=== PATIENT | male | born 1965 | race Caucasian/White ===

== ENCOUNTER 2018-01-17 09:30 | Outpatient (CLI) | payer OTHER ==
--- NOTE | 2018-01-17 12:32 | PET ---
PET WITH CT SKULL TO MID THIGH: CLINICAL HISTORY: Lytic destructive lesion of right rib, indeterminate etiology (abnormality of x-ray). There is appropriate biodistribution of radiotracer activity. RADIOPHARMACEUTICAL: 9.13 mCi F18-FDG IV. FINDINGS: There are multiple hypermetabolic foci localizing to osseous structures of the posterior and right he mithorax. This includes a subtle area at the posterior T5 vertebral body with a SUV of 2.6. At the ri ght posterior T6 level, there is a hypermetabolic activity overlying the right lateral aspect of the T6 vertebral body with a SUV of 2.6. At the T7 posterior costovertebral junction, there is increased metabolic activity of approximately 3.7 SUV. There are multiple foci of hypermetabolic activity invol ving right ribs, with associated pathologic fractures, notably laterally and posterolaterally, includ ing the 6th rib with SUV of 2.5, 7th rib with SUV of 4.4, and 8th rib with SUV of 9.5. There is no hypermetabolic pulmonary mass. No hypermetabolic lesions of the solid abdominal organs. N ephrolithiasis is present bilaterally. There is enlargement of the prostate gland, 5.9 cm transverse. IMPRESSION: Multiple hypermetabolic lesions of osseous structures of the posterior and right thorax. This include s the spine, as well as right ribs, and within the multifocal hypermetabolic foci of the right ribs t here are associated pathologic fractures. There is no discernible hypermetabolic malignancy as the et iological source for metastatic skeletal lesions, and therefore, entities such as Paget disease shoul d be considered clinically with the utilization of laboratory markers such as bone specific alkaline phosphatase and other urinary markers which can be correlated. This may be performed via rheumatologi c medicine consultation. Should clinical workup for Paget disease prove negative, subsequent interrog ation for occult malignancy would then be necessary. Note is made that the prostate gland is enlarged. Therefore, correlation for an occult prostate malig latasha must also be performed utilizing clinical exam, as well as PSA values. The findings and recommendations were discussed with the patient's care provided, LUDMILA Kendrick, at the time of dictation at 1140 hours on 01/17/18. CODE CR. POS: [facility]
== END 2018-01-17 09:31 | disposition home or self-care (01) ==
LOC: PET 09:30
PROVIDERS: ATTEND Family Medicine
DX: Q76.6 Other congenital malformations of ribs (principal); M89.9 Disorder of bone, unspecified; N40.0 Benign prostatic hyperplasia without lower urinary tract symptoms
CPT/HCPCS: 78815; A9552

== ENCOUNTER 2018-04-01 07:27 | Day surgery (SDC) | payer OTHER ==
[2018-03-29 10:41] VITALS: BMI 28.7
[2018-04-01] MEDS ORDERED: Scopolamine 1.5 mg/72 hour Patch ONE (08:30)
[2018-04-01] MEDS ORDERED: Levofloxacin 500 mg/D5W 100 ml Premix Bag ONE (08:30)
[2018-04-01] MEDS ORDERED: Ondansetron ODT 4 MG TAB ONE (08:30)
[2018-04-01] MEDS ORDERED: Lidocaine 2% PF Inj 2 ML VIAL ONE (09:23)
[2018-04-01] MEDS ORDERED: Bupivacaine/Epinephrine 0.25% 30 ML VIAL ONE (09:23)
[2018-04-01] MEDS ORDERED: Propofol 500 MG/50 ML VIAL ONE (09:51)
--- NOTE | 2018-04-01 12:04 | PDOC.OP ---
Operative Note - Operative Note Operative Note: PROCEDURE: Right subclavian MediPort placement with fluoroscopic guidance SURGEON: Alistair Perdue M.D. DATE OF PROCEDURE: 04/01/2018 PREOPERATIVE DIAGNOSIS: Lymphoma POSTOPERATIVE DIAGNOSIS: Lymphoma HISTORY: Patient is diagnosed with lymphoma. Chemotherapy has been recommended and the oncologist has requested MediPort placement for this. OPERATIVE PROCEDURE IN DETAIL: After informed consent was obtained and appropriate preoperative antibiotics were administered, the patient was taken to the operating room and placed in supine position and monitored anesthesia care was administered. The patient was then placed in Trendelenburg position and the subclavian vein accessed easily on the first attempt with excellent flow of dark venous non-pulsatile blood. A wire threaded easily and was confirmed to be in the superior vena cava by fluoroscopy. Additional local anesthesia was infused to the skin and subcutaneous tissues lateral and inferior to the access site. The skin incision was extended from the wire laterally and a subcutaneous pocket developed inferiorly. A Mediport was obtained and confirmed to fit in the subcutaneous pocket. This was secured inferiorly to the pectoralis fascia with a Prolene suture, which was clamped, but not tied. The dilator and sheath were then placed over the wire and the dilator and wire removed leaving the sheath in place. The clamped MediPort tubing was tunneled through the sheath, which was then split and removed leaving the MediPort tubing in place. The tubing was adjusted until the tip was confirmed by fluoroscopy to be in the superior vena cava just above the atrium. The tubing was clamped at the skin level and cut and the tubing secured to the port, which was then placed in the subcutaneous pocket. The previously placed suture was secured and two additional sutures were placed to fix the port in place within the pocket. The port was aspirated with the Wren needle and had excellent flow of dark venous non-pulsatile blood and easily flushed without resistance. The subcutaneous tissues were closed with a running Monocryl suture, following which the skin was closed with a running subcuticular Monocryl suture. Dermabond dressings were placed and the hub was again accessed through the skin and confirmed to easily aspirate and easily flush. The course of the catheter was confirmed by fluoroscopy to be smooth with the tip appropriately located in the superior vena cava. The patient was taken her back to the day stay unit in good condition. Estimated blood loss was minimal. There were no complications. There were no specimens.
--- NOTE | 2018-04-01 13:04 | RAD ---
CHEST ONE VIEW: History: Status post Mediport placement. Evaluate for complication. Comparison: None. FINDINGS: Portable single view chest demonstrates a right sided Mediport catheter with the distal tip in the ex pected region of the superior vena cava. There is no pneumothorax. Normal cardiac silhouette. The pulmonary vessels and hilum are normal. Linear density in the left tila g base likely representing subsegmental atelectasis or scar. No consolidation or mass. No pneumothora x or acute osseous abnormalities. IMPRESSION: Right sided Mediport catheter as above. No pneumothorax. POS: [facility]
[2018-04-01] MEDS ORDERED: PROPOFOL 200 MG/20 ML VIAL ONE (14:21)
[2018-04-01] MEDS ORDERED: Lidocaine 1% PF 5 ML VIAL ONE (14:21)
== END 2018-04-01 11:30 | disposition home or self-care (01) ==
LOC: SDC 07:27
PROVIDERS: ATTEND Surgery
PROC: 02HV33Z Insertion of Infusion Device into Superior Vena Cava, Percutaneous Approach (ICD-10-PCS; principal; 2018-04-01)
DX: C85.90 Non-Hodgkin lymphoma, unspecified, unspecified site (principal); Z88.0 Allergy status to penicillin; Z79.899 Other long term (current) drug therapy
CPT/HCPCS: 71045; C1788; J1642; J1956; J2001; J2704; J3370; Q0162

== ENCOUNTER 2018-06-10 12:55 | Inpatient (IN) | payer OTHER ==
[2018-06-10] MEDS ORDERED: Famotidine/PF 20 mg/2ml Vial SLOW IVP SCH (13:15)
[2018-06-10] MEDS ORDERED: SODIUM CHLORIDE 0.9% IVP SCH (13:15)
[2018-06-10] MEDS ORDERED: ONDANSETRON IVP SCH (13:15)
[2018-06-10] MEDS ORDERED: SODIUM CHLORIDE 0.9% IVPB SCH ×7 (13:15→19:15)
[2018-06-10] MEDS ORDERED: VINCRISTINE SULFATE IVPB SCH ×3 (13:15→19:15)
[2018-06-10] MEDS ORDERED: RITUXIMAB IVPB SCH (13:15)
[2018-06-10] MEDS ORDERED: DIPHENHYDRAMINE IVPB SCH (13:15)
[2018-06-10] MEDS ORDERED: Dexamethasone 20 MG in Sodium Chloride 0.9% 50 ML IVPB SCH (13:15)
[2018-06-10] MEDS ORDERED: Acetaminophen 325 MG TAB PO SCH (13:15)
[2018-06-10] MEDS ORDERED: Pegfilgrastim Onpro 6 MG/0.6 ML SQ SCH (13:30)
[2018-06-10] MEDS ORDERED: CYCLOPHOSPHAMIDE IVPB SCH (13:30)
[2018-06-10] MEDS ORDERED: Sulfameth/Trimethoprim DS 800-160mg TAB PO SCH ×2 (13:30→21:00)
[2018-06-10 13:34] VITALS: BMI 28.8
[2018-06-10] MEDS ORDERED: DOXORUBICIN IVPB SCH ×2 (15:00→19:15)
[2018-06-10] MEDS: predniSONE 20 MG TAB PO SCH (17:46)
[2018-06-11] MEDS: Polyethylene Glycol 3350 17 GM Packet PO SCH (09:08)
[2018-06-11] MEDS: predniSONE 20 MG TAB PO SCH (09:24)
[2018-06-11] MEDS ORDERED: ONDANSETRON IVP SCH (12:00)
[2018-06-11] MEDS ORDERED: SODIUM CHLORIDE 0.9% IVP SCH (12:00)
[2018-06-11] MEDS ORDERED: VINCRISTINE SULFATE IVPB SCH (12:00)
[2018-06-11] MEDS ORDERED: SODIUM CHLORIDE 0.9% IVPB SCH (12:00)
[2018-06-11] MEDS ORDERED: Famotidine 20 MG TAB PO SCH (13:45)
--- NOTE | 2018-06-11 15:44 | HP ---
REASON FOR ADMISSION: Inpatient chemotherapy for diffuse large B-cell lymphoma. HISTORY OF PRESENT ILLNESS: The patient is a 52-year-old man with a recent diagnosis of diffuse large B-cell lymphoma, admitted for inpatient chemotherapy consisting of DA-EPOCH/R. He initially presented with right posterior periscapular back pain and subsequent imaging confirmed a destructive process at the right 8th rib measuring approximately 6 cm. A total body PET scan also revealed FDG-avid malignancy with the 8th rib as well as T5, T6, T7, and right ribs. A biopsy confirmed diffuse large B-cell lymphoma and molecular testing showed no evidence of double or triple hit lymphoma. He sought a second opinion at [facility] regarding diagnosis and management. The pathology was reviewed at the [facility] and at [facility] and all concurred with the initial assessment. As a consequence of extranodal disease which was multifocal, high Ki-67, and his young age, it was decided to treat him aggressively with dose adjusted EPOCH/Rituxan. He received his first 2 cycles of treatment at [facility] and a PET scan then showed a complete response. He had no significant side effects or myelosuppression during the first 2 cycles and doses were accelerated per standard protocol. He is admitted now for cycle 3. ALLERGIES: NONE, EXCEPT FOR A QUESTIONABLE ALLERGY TO PENICILLIN OF UNCLEAR TYPE. MEDICATIONS: None chronically. MEDICAL HISTORY: There is a history of colon polyps, nephrolithiasis, and diverticulosis. PAST SURGICAL HISTORY: The patient underwent colonoscopy with polypectomy in 2014 and 2017. He has had strabismus surgery in 1995. He underwent a varicocele repair and hydrocele repair in 1991 and 1963, respectively. A pyloromyotomy was performed in 1963. Finally, the patient underwent Mediport placement in March 2018. FAMILY HISTORY: The patient's father had colon and prostate cancer. His paternal grandfather also had prostate cancer and his paternal grandmother had lymphoma. SOCIAL HISTORY: He is and has no children. He lives with his spouse, who is quite involved in his care. He is a nonsmoker and social drinker. He used smokeless tobacco in the distant past, but discontinued use 10 years ago. He is a general administrator. REVIEW OF SYSTEMS: He denies significant cardiopulmonary, GI, , musculoskeletal, or neurological complaints. PHYSICAL EXAMINATION: VITAL SIGNS: Temperature 97.8, pulse 67, respirations 18, blood pressure 106/67 , and room air saturation 99%. GENERAL: The patient is well-developed and well-nourished man, in no acute distress. He is alert, oriented, and cooperative. There is obvious alopecia. HEENT: Extraocular movements are intact. Pupils are equal, round, and reactive to light. NECK: Supple. LUNGS: Clear. CARDIOVASCULAR: Regular, rate, and rhythm without murmur, rub, gallop, or click. ABDOMEN: No tenderness, organomegaly, masses, bruits, or ascites. EXTREMITIES: No clubbing, cyanosis, or edema. SKIN: Normal. LYMPH: No adenopathy. MUSCULOSKELETAL: No active arthritis. NEUROLOGICAL: No focal findings. Cranial nerves 2 through 12 are grossly intact. LABORATORY DATA: On June 07, prior to admission shows a white blood cell count of 4.4 and ANC 3.0. Hemoglobin is 12.5 and platelet count 301,000. A comprehensive chemistry panel is entirely normal except for a borderline globulin of 2.1. IMPRESSION: Multifocal extranodal diffuse large B-cell lymphoma involving bone. RECOMMENDATIONS: The patient will be admitted for a standard dose adjusted EPOCH/R. Doses in the regimen have been adjusted as per MD Omar's recommendations. He will receive Neulasta support as on the first two cycles. Job ID: [id number] [facility]
[2018-06-11] MEDS: diphenhydrAMINE 50 MG/ML VIAL IVP PRN (21:22)
[2018-06-11] MEDS: DOXORUBICIN IVPB SCH (23:53)
[2018-06-11] MEDS: SODIUM CHLORIDE 0.9% IVPB SCH (23:53)
[2018-06-11] MEDS: VINCRISTINE SULFATE IVPB SCH (23:53)
[2018-06-12] MEDS: Sulfameth/Trimethoprim DS 800-160mg TAB PO SCH (08:49)
[2018-06-12] MEDS: Famotidine 20 MG TAB PO SCH (08:50)
[2018-06-12] MEDS: Polyethylene Glycol 3350 17 GM Packet PO SCH (08:50)
[2018-06-12] MEDS: predniSONE 20 MG TAB PO SCH (08:58)
[2018-06-12] MEDS ORDERED: SODIUM CHLORIDE 0.9% IVP SCH (09:00)
[2018-06-12] MEDS ORDERED: ONDANSETRON IVP SCH (09:00)
[2018-06-13] MEDS: diphenhydrAMINE 50 MG/ML VIAL IVP PRN (00:36)
[2018-06-13 00:57] LABS: #Lymphocytes 0.4 thou/uL (1.20-3.40); #Monocytes 0.6 thou/uL (0.11-0.59); #Neutrophils 4.3 thou/uL (1.40-6.50); %Basophils 0.1 % (0.0-1.0); %Eosinophils 0.2 % (0.0-10.0); %Lymphocytes 8.2 % (21.0-51.0); %Monocytes 11.7 % (0.0-10.0); %Neutrophils 79.8 % (42.0-75.0); Hemoglobin 11.9 g/dL (14.0-18.0); Mean Corpuscular HGB CONC 33.7 g/dL (32.0-36.0); Mean Corpuscular Hemoglobin 30.1 pg (27.0-31.0); Mean Corpuscular Volume 89.2 fL (78.0-98.0); Mean Platelet Volume 7.2 fL (7.4-10.4); Platelet Count 208 thou/uL (130-400); RBC Distribution Width 14.4 % (11.5-14.5); Red Blood Cell (RBC) Count 3.96 mill/uL (4.70-6.10); White Blood Cell (WBC) Count 5.3 thou/uL (4.8-10.8)
[2018-06-13 01:24] LABS: ALT (SGPT) 38 U/L (8-55); AST (SGOT) 18 U/L (5-34); Alkaline Phosphatase 73 U/L (40-150); Anion Gap 12 mmol/L (10-20); BUN (Urea Nitrogen) 12 mg/dL (8.4-25.7); Bilirubin, Total 0.7 mg/dL (0.2-1.2); Calc. Creatinine Clearance 143 mL/min (70-130); Calcium 9.6 mg/dL (7.8-10.44); Carbon Dioxide 27 mmol/L (22-29); Chloride 105 mmol/L (98-107); Estimated GFR-MDRD Greater than 90; Globulin 2.3 g/dL (2.4-3.5); Glucose 114 mg/dL (70-105); Potassium 3.9 mmol/L (3.5-5.1); Protein, Total 6.3 g/dL (6.0-8.3); Sodium 140 mmol/L (136-145)
[2018-06-13] MEDS: SODIUM CHLORIDE 0.9% IVPB SCH (01:40)
[2018-06-13] MEDS: VINCRISTINE SULFATE IVPB SCH (01:40)
[2018-06-13] MEDS: DOXORUBICIN IVPB SCH (01:40)
[2018-06-13] MEDS: Polyethylene Glycol 3350 17 GM Packet PO SCH (09:03)
[2018-06-13] MEDS: predniSONE 20 MG TAB PO SCH (09:03)
[2018-06-13] MEDS: Famotidine 20 MG TAB PO SCH (09:04)
[2018-06-13] MEDS ORDERED: ONDANSETRON IVP SCH (12:00)
[2018-06-13] MEDS ORDERED: SODIUM CHLORIDE 0.9% IVP SCH (12:00)
[2018-06-13] MEDS ORDERED: DOXORUBICIN IVPB SCH (22:15)
[2018-06-13] MEDS ORDERED: VINCRISTINE SULFATE IVPB SCH (22:15)
[2018-06-13] MEDS ORDERED: SODIUM CHLORIDE 0.9% IVPB SCH (22:15)
[2018-06-14] MEDS: SODIUM CHLORIDE 0.9% IVP SCH (03:17)
[2018-06-14] MEDS: ONDANSETRON IVP SCH (03:17)
[2018-06-14] MEDS: DOXORUBICIN IVPB SCH (05:15)
[2018-06-14] MEDS: VINCRISTINE SULFATE IVPB SCH (05:15)
[2018-06-14] MEDS: SODIUM CHLORIDE 0.9% IVPB SCH (05:15)
[2018-06-14] MEDS ORDERED: SODIUM CHLORIDE 0.9% IVPB SCH (09:00)
[2018-06-14] MEDS ORDERED: CYCLOPHOSPHAMIDE IVPB SCH (09:00)
[2018-06-14] MEDS: Polyethylene Glycol 3350 17 GM Packet PO SCH (09:12)
[2018-06-14] MEDS: predniSONE 20 MG TAB PO SCH (09:12)
[2018-06-14] MEDS: Famotidine 20 MG TAB PO SCH (09:13)
[2018-06-14] MEDS: Sulfameth/Trimethoprim DS 800-160mg TAB PO SCH (09:13)
[2018-06-15] MEDS ORDERED: predniSONE 20 MG TAB PO SCH (06:00)
[2018-06-15] MEDS ORDERED: CYCLOPHOSPHAMIDE IVPB SCH (06:00)
[2018-06-15] MEDS ORDERED: SODIUM CHLORIDE 0.9% IVPB SCH (06:00)
[2018-06-15] MEDS: SODIUM CHLORIDE 0.9% IVP SCH (07:48)
[2018-06-15] MEDS: ONDANSETRON IVP SCH (07:48)
[2018-06-15 08:05] VITALS: BP 127/71; TEMP 97.8
[2018-06-15 08:34] LABS: #Monocytes 0.2 thou/uL (0.11-0.59); #Neutrophils 4.9 thou/uL (1.40-6.50); %Basophils 0.1 % (0.0-1.0); %Eosinophils 0.6 % (0.0-10.0); %Lymphocytes 16.3 % (21.0-51.0); %Monocytes 2.5 % (0.0-10.0); %Neutrophils 80.5 % (42.0-75.0); Hemoglobin 12.6 g/dL (14.0-18.0); Mean Corpuscular HGB CONC 34.3 g/dL (32.0-36.0); Mean Corpuscular Hemoglobin 30.2 pg (27.0-31.0); Mean Corpuscular Volume 88.1 fL (78.0-98.0); Mean Platelet Volume 7.5 fL (7.4-10.4); Platelet Count 215 thou/uL (130-400); RBC Distribution Width 13.9 % (11.5-14.5); Red Blood Cell (RBC) Count 4.18 mill/uL (4.70-6.10)
[2018-06-15] MEDS: Polyethylene Glycol 3350 17 GM Packet PO SCH (08:39)
[2018-06-15] MEDS: Famotidine 20 MG TAB PO SCH (08:41)
--- NOTE | 2018-06-17 09:54 | DIS ---
DATE OF ADMISSION: 06/10/2018 DATE OF DISCHARGE: 06/15/2018 DIAGNOSIS AT ADMISSION: Diffuse large B-cell lymphoma. DIAGNOSIS AT DISCHARGE: Diffuse large B-cell lymphoma, status post chemotherapy. HOSPITAL COURSE: The patient is a 52-year-old gentleman with a diagnosis of diffuse large B-cell lymphoma. He was admitted for inpatient chemotherapy consisting of DA-EPOCH/R. He tolerated the 5-day treatment with no issues. LABORATORY DATA: At the time of discharge, his white count was 6.0, hemoglobin was 12.6, hematocrit 36.8, and platelet count was 215,000. He did receive Neulasta Onpro at the time of discharge. DISCHARGE INSTRUCTIONS: He is being discharged home with instructions to follow up in our clinic on Sunday for repeat CBC. Job ID: [id number]
== END 2018-06-15 11:09 | disposition home or self-care (01) | DRG 847 ==
LOC: ONC 12:55
PROVIDERS: ADMIT Internal Medicine Hematology & Oncology; ATTEND Internal Medicine Hematology & Oncology
DX: Z51.11 Encounter for antineoplastic chemotherapy (principal); C83.30 Diffuse large B-cell lymphoma, unspecified site; Z86.010 Personal history of colon polyps; Z80.42 Family history of malignant neoplasm of prostate; Z80.0 Family history of malignant neoplasm of digestive organs; Z80.7 Family history of other malignant neoplasms of lymphoid, hematopoietic and related tissues
CPT/HCPCS: 36415; 80053; 82248; 83615; 84100; 84550; 85025; 96377; J1100; J1200; J2405; J2505; J7050; J7506; J9000; J9070; J9181; J9310; J9370

== ENCOUNTER 2018-07-08 14:03 | Inpatient (IN) | payer OTHER ==
[2018-07-08] MEDS ORDERED: Loperamide HCl 2 MG CAP PO PRN (14:27)
[2018-07-08] MEDS ORDERED: Ondansetron PF 4 MG/2 ML Vial SLOW IVP PRN (14:27)
[2018-07-08] MEDS ORDERED: predniSONE 20 MG TAB PO SCH (14:45)
[2018-07-08] MEDS ORDERED: DIPHENHYDRAMINE IVPB SCH (14:45)
[2018-07-08] MEDS ORDERED: Acetaminophen 325 MG TAB PO SCH (14:45)
[2018-07-08] MEDS ORDERED: ONDANSETRON HCL IVPB SCH (14:45)
[2018-07-08] MEDS ORDERED: Dexamethasone 20 MG in Sodium Chloride 0.9% 50 ML IVPB SCH (14:45)
[2018-07-08] MEDS ORDERED: Famotidine/PF 20 mg/2ml Vial SLOW IVP SCH ×2 (14:45→15:30)
[2018-07-08] MEDS ORDERED: SODIUM CHLORIDE 0.9% IVPB SCH ×3 (14:45)
[2018-07-08] MEDS ORDERED: RITUXIMAB IVPB SCH (14:45)
[2018-07-08] MEDS ORDERED: Sulfameth/Trimethoprim DS 800-160mg TAB PO SCH (15:00)
[2018-07-08 15:02] VITALS: BMI 29.1
[2018-07-08 16:31] LABS: Hemoglobin 12.5 g/dL (14.0-18.0); Mean Corpuscular HGB CONC 33.2 g/dL (32.0-36.0); Mean Corpuscular Hemoglobin 30.1 pg (27.0-31.0); Mean Corpuscular Volume 90.5 fL (78.0-98.0); Mean Platelet Volume 7.2 fL (7.4-10.4); Platelet Count 326 thou/uL (130-400); RBC Distribution Width 14.5 % (11.5-14.5); Red Blood Cell (RBC) Count 4.17 mill/uL (4.70-6.10); White Blood Cell (WBC) Count 5.6 thou/uL (4.8-10.8)
[2018-07-08 16:49] LABS: Band 3 % (5-11); Eosinophils 1 % (0-10); Lymphocytes 16 % (21-51); MDiff Complete? YES; Monocytes 11 % (0-10); Neutrophil 68 % (42-75); Ovalocytes SLIGHT = 2-5 cells (100X) (0-1/hpf); Platelet Morphology Comment Appears Adequate; Polychromasia SLIGHT = 2-3 cells (100X) (0-2/hpf); Reactive Lymphocytes 1 % (0-10); Tear Drops SLIGHT = 2-5 cells (100X) (0-1/hpf)
[2018-07-08 16:58] LABS: ALT (SGPT) 32 U/L (8-55); AST (SGOT) 27 U/L (5-34); Albumin 4.5 g/dL (3.5-5.0); Alkaline Phosphatase 97 U/L (40-150); Anion Gap 11 mmol/L (10-20); BUN (Urea Nitrogen) 21 mg/dL (8.4-25.7); Bilirubin, Total 0.4 mg/dL (0.2-1.2); Calc. Creatinine Clearance 106 mL/min (70-130); Carbon Dioxide 27 mmol/L (22-29); Chloride 104 mmol/L (98-107); Estimated GFR-MDRD 74; Globulin 2.5 g/dL (2.4-3.5); Glucose 95 mg/dL (70-105); LDH 258 U/L (125-220); Sodium 138 mmol/L (136-145); Uric Acid 6.1 mg/dL (3.5-7.2)
[2018-07-08] MEDS: Sulfameth/Trimethoprim DS 800-160mg TAB PO SCH (18:00)
[2018-07-08] MEDS: ONDANSETRON HCL IVPB SCH (22:24)
[2018-07-08] MEDS: SODIUM CHLORIDE 0.9% IVPB SCH (22:24)
[2018-07-09] MEDS: VINCRISTINE SULFATE IVPB SCH (00:59)
[2018-07-09] MEDS: SODIUM CHLORIDE 0.9% IVPB SCH (00:59)
[2018-07-09] MEDS: DOXORUBICIN IVPB SCH (00:59)
[2018-07-09] MEDS: Famotidine 20 MG TAB PO SCH (08:45)
[2018-07-09] MEDS: Polyethylene Glycol 3350 17 GM Packet PO SCH (08:45)
[2018-07-09] MEDS: predniSONE 20 MG TAB PO SCH (08:46)
[2018-07-10] MEDS: SODIUM CHLORIDE 0.9% IVPB SCH ×2 (02:46→04:42)
[2018-07-10] MEDS: ONDANSETRON HCL IVPB SCH (02:46)
[2018-07-10] MEDS: DOXORUBICIN IVPB SCH (04:42)
[2018-07-10] MEDS: VINCRISTINE SULFATE IVPB SCH (04:42)
[2018-07-10] MEDS: predniSONE 20 MG TAB PO SCH (08:42)
[2018-07-10] MEDS: Famotidine 20 MG TAB PO SCH (08:43)
[2018-07-10] MEDS: Sulfameth/Trimethoprim DS 800-160mg TAB PO SCH (08:43)
[2018-07-10] MEDS: Polyethylene Glycol 3350 17 GM Packet PO SCH (08:43)
--- NOTE | 2018-07-10 09:53 | HP ---
REASON FOR ADMISSION: Inpatient chemotherapy for diffuse large B-cell lymphoma. PRIMARY ONCOLOGIST: Dr. Mehul Aiken. HISTORY OF PRESENT ILLNESS: Mr. Sky is a pleasant 52-year-old gentleman with diffuse large B-cell lymphoma. He is being admitted today for inpatient chemotherapy consisting of DA-EPOCH-R. This will be cycle four. He received his first 2 cycles at [facility]. PET scan showed complete response. He had no significant side effects of myelosuppression. He had increased dose with cycle 3 and continues to do well today. He is being admitted for cycle four. He denies any concerns at this time. PAST MEDICAL HISTORY: 1. Colon polyps. 2. Nephrolithiasis. 3. Diverticulitis. PAST SURGICAL HISTORY: 1. Colonoscopy with polypectomy. 2. Strabismus surgery. 3. Varicocele repair. 4. Pyloromyotomy. 5. MediPort placement. ALLERGIES: ANESTHETICS AND PENICILLIN. HOME MEDICATIONS: Vitamin D and melatonin. FAMILY HISTORY: Father had colon and prostate cancer. Grandfather had prostate cancer. Paternal grandmother had lymphoma. SOCIAL HISTORY: with no children. Lives with his spouse. No alcohol, tobacco, or illicit drug use. REVIEW OF SYSTEMS: CONSTITUTIONAL: No fever, chills, or night sweats. EYES: No blurred or double vision. ENT: No pain, hoarseness, sore throat, or dysphagia. CV: No chest pain, palpitations, or syncope. RESPIRATORY: No shortness of breath, dyspnea on exertion, or orthopnea. GI: No nausea, vomiting, diarrhea, constipation, or abdominal pain. : No dysuria or hematuria. MUSCULOSKELETAL: No joint or back pain. SKIN: No rash or pruritus. HEMATOLOGIC: No bleeding, bruising, or clotting. NEUROLOGIC: No weakness, headache, numbness, tingling, or seizure activity. PSYCH: No anxiety or depression. PHYSICAL EXAMINATION: VITAL SIGNS: Temperature is 97.8, pulse is 77, respiratory rate 16, blood pressure is 122/75. He is 95% on room air. GENERAL: Well-developed, well-nourished male, in no acute distress. HEENT: Normocephalic and atraumatic. Pupils are equal and reactive to light. NECK: Supple. CV: Regular rate and rhythm. LUNGS: Clear. ABDOMEN: Soft and nontender. There is no organomegaly. Bowel sounds are positive. EXTREMITIES: No clubbing, cyanosis, or edema. SKIN: No rash. HEMATOLOGIC: No petechiae or purpura. NEUROLOGICAL: Nonfocal. LYMPH: There is no lymphadenopathy. PERTINENT LABORATORY DATA AND X-RAYS: WBCs are 5.6, hemoglobin 12.5, hematocrit 37.7, platelet count 326,000, 68% neutrophils, 3% bands, 16% lymphocytes. Sodium is 138, potassium 4.0, chloride 104, CO2 is 27, BUN is 11, creatinine 1.04. Uric acid is 6.1, calcium 10, total bilirubin is 0.4, AST is 27, ALT is 32, alkaline phosphatase is 97, LDH is 258. Serum total protein 7.0, albumin 4.5, and globulin 2.5. IMPRESSION: Multifocal extranodal diffuse large B-cell lymphoma with bone involvement. RECOMMENDATIONS: The patient is being admitted for cycle 4 of EPOCH-R. He will receive Neulasta support. We will continue p.r.n. stool softener and nausea medicine. He will be discharged at the completion of chemotherapy. Job ID: [id number]
[2018-07-11] MEDS: SODIUM CHLORIDE 0.9% IVPB SCH ×2 (06:52→08:49)
[2018-07-11] MEDS: ONDANSETRON HCL IVPB SCH (06:52)
[2018-07-11] MEDS: VINCRISTINE SULFATE IVPB SCH (08:49)
[2018-07-11] MEDS: DOXORUBICIN IVPB SCH (08:49)
[2018-07-11] MEDS: Famotidine 20 MG TAB PO SCH ×2 (09:24→21:00)
[2018-07-11] MEDS: predniSONE 20 MG TAB PO SCH (09:24)
[2018-07-11] MEDS: Polyethylene Glycol 3350 17 GM Packet PO SCH (09:24)
[2018-07-11] MEDS ORDERED: Mag-Al 1200 mg/1200 mg/30 ML UDCUP PO PRN (09:46)
[2018-07-11] MEDS ORDERED: Calcium Carbonate 500 MG ChewTAB PO PRN (09:46)
[2018-07-12] MEDS: Polyethylene Glycol 3350 17 GM Packet PO SCH (08:14)
[2018-07-12] MEDS: Famotidine 20 MG TAB PO SCH ×2 (08:14→21:00)
[2018-07-12] MEDS: Sulfameth/Trimethoprim DS 800-160mg TAB PO SCH (08:14)
[2018-07-12] MEDS: predniSONE 20 MG TAB PO SCH (08:14)
[2018-07-12] MEDS: ONDANSETRON HCL IVPB SCH (09:23)
[2018-07-12] MEDS: SODIUM CHLORIDE 0.9% IVPB SCH ×2 (09:23→12:18)
[2018-07-12] MEDS ORDERED: CYCLOPHOSPHAMIDE IVPB SCH (12:00)
[2018-07-12] MEDS ORDERED: SODIUM CHLORIDE 0.9% IVPB SCH (12:00)
[2018-07-12] MEDS ORDERED: Pegfilgrastim Onpro 6 MG/0.6 ML SQ SCH (12:00)
[2018-07-12] MEDS: DOXORUBICIN IVPB SCH (12:18)
[2018-07-12] MEDS: VINCRISTINE SULFATE IVPB SCH (12:18)
[2018-07-12 19:18] VITALS: TEMP 97.6
[2018-07-13] MEDS ORDERED: SODIUM CHLORIDE 0.9% IVPB SCH ×2 (07:45→11:15)
[2018-07-13] MEDS ORDERED: CYCLOPHOSPHAMIDE IVPB SCH (07:45)
[2018-07-13] MEDS ORDERED: Pegfilgrastim Onpro 6 MG/0.6 ML SQ SCH (07:45)
[2018-07-13] MEDS: predniSONE 20 MG TAB PO SCH (09:15)
[2018-07-13] MEDS: Famotidine 20 MG TAB PO SCH (09:15)
[2018-07-13] MEDS ORDERED: ONDANSETRON HCL IVPB SCH (11:15)
[2018-07-13] MEDS: Polyethylene Glycol 3350 17 GM Packet PO SCH (11:42)
[2018-07-13 11:54] LABS: #Lymphocytes 0.4 thou/uL (1.20-3.40); #Monocytes 0.1 thou/uL (0.11-0.59); #Neutrophils 5.8 thou/uL (1.40-6.50); %Basophils 0.2 % (0.0-1.0); %Eosinophils 0.2 % (0.0-10.0); %Lymphocytes 6.4 % (21.0-51.0); %Monocytes 1.7 % (0.0-10.0); %Neutrophils 91.6 % (42.0-75.0); Hemoglobin 11.9 g/dL (14.0-18.0); Mean Corpuscular HGB CONC 33.9 g/dL (32.0-36.0); Mean Corpuscular Hemoglobin 30.7 pg (27.0-31.0); Mean Corpuscular Volume 90.3 fL (78.0-98.0); Mean Platelet Volume 7.5 fL (7.4-10.4); Platelet Count 230 thou/uL (130-400); RBC Distribution Width 14.4 % (11.5-14.5); Red Blood Cell (RBC) Count 3.89 mill/uL (4.70-6.10); White Blood Cell (WBC) Count 6.3 thou/uL (4.8-10.8)
[2018-07-13 12:22] LABS: ALT (SGPT) 27 U/L (8-55); AST (SGOT) 19 U/L (5-34); Alkaline Phosphatase 71 U/L (40-150); Anion Gap 12 mmol/L (10-20); BUN (Urea Nitrogen) 19 mg/dL (8.4-25.7); Bilirubin, Total 0.7 mg/dL (0.2-1.2); Calc. Creatinine Clearance 139 mL/min (70-130); Calcium 9.6 mg/dL (7.8-10.44); Carbon Dioxide 28 mmol/L (22-29); Chloride 102 mmol/L (98-107); Estimated GFR-MDRD Greater than 90; Globulin 2.3 g/dL (2.4-3.5); Glucose 101 mg/dL (70-105); Potassium 3.8 mmol/L (3.5-5.1); Protein, Total 6.3 g/dL (6.0-8.3); Sodium 138 mmol/L (136-145)
[2018-07-13 12:41] VITALS: BP 124/71
--- NOTE | 2018-07-14 02:33 | DIS ---
DATE OF ADMISSION: 07/08/2018 DATE OF DISCHARGE: 07/13/2018 DIAGNOSIS AT ADMISSION: Diffuse large B-cell lymphoma. DIAGNOSIS AT DISCHARGE: Diffuse large B-cell lymphoma, status post cycle #4 of chemotherapy. HOSPITAL COURSE: Mr. Sky is a pleasant 52-year-old gentleman with a diagnosis of diffuse large B-cell lymphoma. He was admitted for cycle #4 of inpatient chemotherapy consisting of the EPOCH-R, which is a 5 day treatment. He tolerated it well with no issues. He did receive Neulasta Onpro today at discharge. He had no complaints or issues. LABORATORY DATA: 1. WBCs were 6.3, hemoglobin 11.9, hematocrit 35.1, platelet count was 230,000. His sodium was 138, potassium 3.8, chloride 102, CO2 is 28, BUN is 19, creatinine 0.79, calcium was 9.6, total bilirubin was 0.7, AST is 19, ALT is 27, alkaline phosphatase is 71. Serum total protein was 6.3, albumin 4.1 and globulin 2.3. HOME MEDICATIONS: Included: 1. Vitamin D3 daily. 2. Melatonin at bedtime. 3. Vitamin B complex daily. ACTIVITY: Up ad mckenzie. DISCHARGE INSTRUCTIONS: He was being discharged with instructions to follow up in our clinic next week for repeat lab. Job ID: [id number]
== END 2018-07-13 14:37 | disposition home or self-care (01) | DRG 847 ==
LOC: ONC 14:03
PROVIDERS: ADMIT Internal Medicine Hematology & Oncology; ATTEND Internal Medicine Hematology & Oncology
DX: Z51.11 Encounter for antineoplastic chemotherapy (principal); C83.30 Diffuse large B-cell lymphoma, unspecified site
CPT/HCPCS: 80053; 83615; 84550; 85025; 96377; J1100; J1200; J2405; J2505; J7050; J7506; J9070; J9310; J9312; J9370; Q2050

== ENCOUNTER 2018-08-05 12:30 | Inpatient (IN) | payer OTHER ==
[2018-08-05] MEDS ORDERED: Acetaminophen 325 MG TAB PO SCH (13:00)
[2018-08-05] MEDS ORDERED: diphenhydrAMINE 50 MG/ML VIAL IVP SCH (13:00)
[2018-08-05] MEDS ORDERED: Famotidine/PF 20 mg/2ml Vial SLOW IVP SCH (13:00)
[2018-08-05] MEDS ORDERED: RITUXIMAB IVPB SCH (13:15)
[2018-08-05] MEDS ORDERED: VINCRISTINE SULFATE IVPB SCH (13:15)
[2018-08-05] MEDS ORDERED: SODIUM CHLORIDE 0.9% IVP SCH (13:15)
[2018-08-05] MEDS ORDERED: DOXORUBICIN IVPB SCH (13:15)
[2018-08-05] MEDS ORDERED: SODIUM CHLORIDE 0.9% IVPB SCH ×2 (13:15)
[2018-08-05] MEDS ORDERED: ONDANSETRON IVP SCH (13:15)
[2018-08-05] MEDS ORDERED: Dexamethasone 20 MG in Sodium Chloride 0.9% 50 ML IVPB SCH (13:15)
[2018-08-05 13:26] VITALS: BMI 28.7
[2018-08-05] MEDS ORDERED: Calcium Carbonate 500 MG ChewTAB PO PRN (13:37)
[2018-08-05] MEDS ORDERED: predniSONE 20 MG TAB PO SCH (14:00)
[2018-08-05 14:16] LABS: #Basophils 0.1 thou/uL (0.0-0.2); #Eosinphils 0.1 thou/uL (0.0-0.7); #Lymphocytes 0.8 thou/uL (1.20-3.40); #Monocytes 0.8 thou/uL (0.11-0.59); %Basophils 1.1 % (0.0-1.0); %Eosinophils 1.3 % (0.0-10.0); %Lymphocytes 14.1 % (21.0-51.0); %Monocytes 14.1 % (0.0-10.0); %Neutrophils 69.4 % (42.0-75.0); Hemoglobin 12.7 g/dL (14.0-18.0); Mean Corpuscular HGB CONC 33.2 g/dL (32.0-36.0); Mean Corpuscular Hemoglobin 30.5 pg (27.0-31.0); Mean Corpuscular Volume 91.9 fL (78.0-98.0); Mean Platelet Volume 7.4 fL (7.4-10.4); Platelet Count 324 thou/uL (130-400); RBC Distribution Width 14.8 % (11.5-14.5); Red Blood Cell (RBC) Count 4.15 mill/uL (4.70-6.10); White Blood Cell (WBC) Count 5.8 thou/uL (4.8-10.8)
[2018-08-05 14:44] LABS: ALT (SGPT) 37 U/L (8-55); AST (SGOT) 32 U/L (5-34); Albumin 4.6 g/dL (3.5-5.0); Alkaline Phosphatase 84 U/L (40-150); Anion Gap 12 mmol/L (10-20); BUN (Urea Nitrogen) 19 mg/dL (8.4-25.7); Bilirubin, Total 0.5 mg/dL (0.2-1.2); Calc. Creatinine Clearance 126 mL/min (70-130); Calcium 10.2 mg/dL (7.8-10.44); Carbon Dioxide 28 mmol/L (22-29); Chloride 104 mmol/L (98-107); Estimated GFR-MDRD Greater than 90; Globulin 2.4 g/dL (2.4-3.5); Glucose 97 mg/dL (70-105); Potassium 3.9 mmol/L (3.5-5.1); Sodium 140 mmol/L (136-145); Uric Acid 6.4 mg/dL (3.5-7.2)
[2018-08-05] MEDS: Sulfameth/Trimethoprim DS 800-160mg TAB PO SCH (15:06)
[2018-08-05] MEDS: Polyethylene Glycol 3350 17 GM Packet PO SCH (15:06)
--- NOTE | 2018-08-05 15:28 | HP ---
REASON FOR ADMISSION: Cycle 5 inpatient chemotherapy for diffuse large B-cell lymphoma. PRIMARY ONCOLOGIST: Mehul Aiken MD HISTORY OF PRESENT ILLNESS: Mr. Sky is a pleasant 52-year-old gentleman with diffuse large B-cell lymphoma. He is being admitted today for cycle 5 of inpatient chemotherapy consisting of DA-EPOCH-R. He has tolerated his first 4 cycles with minimal side effects. Recent PET scan showed complete response. He has had no myelosuppression. His appetite is good and weight has been stable. He has no complaints at this time. PAST MEDICAL HISTORY: 1. Diffuse large B-cell lymphoma. 2. Colon polyps. 3. Nephrolithiasis. 4. Diverticulitis. PAST SURGICAL HISTORY: 1. Colonoscopy with polypectomy. 2. Strabismus surgery. 3. Varicella repair. 4. Pyloromyotomy. 5. MediPort placement. ALLERGIES: TO ANESTHETICS AND PENICILLIN. HOME MEDICATIONS: 1. Vitamin D. 2. Melatonin. FAMILY HISTORY: Father had colon and prostate cancer. Grandfather had prostate cancer. Paternal grandmother had lymphoma. SOCIAL HISTORY: . No children. Lives with his spouse. No alcohol, tobacco, or illicit drug use. REVIEW OF SYSTEMS: CONSTITUTIONAL: No fever, chills, or night sweats. EYES: No blurred or double vision. ENT: No pain, hoarseness, sore throat, or dysphagia. CV: No chest pain, palpitations, or syncope. RESPIRATORY: No shortness of breath, dyspnea on exertion, or orthopnea. GASTROINTESTINAL: No nausea, vomiting, diarrhea, constipation, or abdominal pain. GENITOURINARY: No dysuria or hematuria. MUSCULOSKELETAL: No joint or back pain. SKIN: No rash or pruritus. HEMATOLOGICAL: No bleeding, bruising, or clotting. NEUROLOGICAL: No weakness, headache, numbness, tingling, or seizure disorder. PSYCH: No anxiety or depression. PHYSICAL EXAMINATION: VITAL SIGNS: Temperature 97.8, pulse is 69, respiratory rate 18, blood pressure is 121/76, and he is 96% on room air. GENERAL: Well-developed, well-nourished male, in no acute distress. HEENT: Normocephalic, atraumatic. Pupils are equal and reactive to light. NECK: Supple. CV: Regular rate and rhythm. LUNGS: Clear to auscultation. ABDOMEN: Soft, nontender. Bowel sounds are positive. There is no organomegaly. EXTREMITIES: No clubbing, cyanosis, or edema. SKIN: No rash. LYMPH: There is no adenopathy. NEUROLOGICAL: Nonfocal. PSYCH: The patient is alert and oriented and appropriate. PERTINENT LABORATORY AND X-RAYS: Current WBCs are 5.8, hemoglobin 12.7, hematocrit 38.7, and platelet count is 324,000. He has 69% neutrophils, 14% lymphocytes, and 14% monocytes. Sodium is 140, potassium 3.9, chloride 104, CO2 is 28, BUN is 19, creatinine 0.86, uric acid is 6.4, calcium 10.2, total bilirubin is 0.5, AST is 32, ALT is 37, and alkaline phosphatase is 84. LDH is 205. Serum total protein is 7, albumin 4.6, and globulin 4.2. IMPRESSION: Multifocal extranodal diffuse large B-cell lymphoma with bone involvement in complete remission after 4 cycles of chemotherapy. RECOMMENDATIONS: The patient will proceed with cycle 5 of EPOCH-R. He will receive Neulasta support. Plan to continue stool softener and p.r.n. nausea medication. He will be discharged at the completion of chemotherapy. This is a 5-day regimen. Dr. Aiken will follow the patient and see the patient later today. Job ID: [id number]
[2018-08-06] MEDS: Famotidine/PF 20 mg/2ml Vial SLOW IVP SCH (07:58)
[2018-08-06] MEDS: predniSONE 20 MG TAB PO SCH (07:59)
[2018-08-06] MEDS: Polyethylene Glycol 3350 17 GM Packet PO SCH (07:59)
[2018-08-06] MEDS ORDERED: DOXORUBICIN IVPB SCH (12:00)
[2018-08-06] MEDS ORDERED: VINCRISTINE SULFATE IVPB SCH (12:00)
[2018-08-06] MEDS ORDERED: ONDANSETRON IVP SCH (12:00)
[2018-08-06] MEDS ORDERED: Famotidine/PF 20 mg/2ml Vial SLOW IVP SCH (12:00)
[2018-08-06] MEDS ORDERED: SODIUM CHLORIDE 0.9% IVPB SCH (12:00)
[2018-08-06] MEDS ORDERED: SODIUM CHLORIDE 0.9% IVP SCH (12:00)
[2018-08-06] MEDS ORDERED: predniSONE 20 MG TAB PO SCH (14:00)
[2018-08-07] MEDS: Sulfameth/Trimethoprim DS 800-160mg TAB PO SCH (09:35)
[2018-08-07] MEDS: Polyethylene Glycol 3350 17 GM Packet PO SCH (09:36)
[2018-08-07] MEDS: predniSONE 20 MG TAB PO SCH (09:36)
[2018-08-07] MEDS: Famotidine/PF 20 mg/2ml Vial SLOW IVP SCH (11:49)
[2018-08-07] MEDS ORDERED: SODIUM CHLORIDE 0.9% IVP SCH (12:00)
[2018-08-07] MEDS ORDERED: ONDANSETRON IVP SCH (12:00)
[2018-08-07] MEDS ORDERED: DOXORUBICIN IVPB SCH (12:00)
[2018-08-07] MEDS ORDERED: SODIUM CHLORIDE 0.9% IVPB SCH (12:00)
[2018-08-07] MEDS ORDERED: VINCRISTINE SULFATE IVPB SCH (12:00)
[2018-08-07] MEDS ORDERED: Famotidine/PF 20 mg/2ml Vial SLOW IVP SCH (12:00)
[2018-08-07] MEDS ORDERED: Famotidine 20 MG TAB PO SCH (13:15)
[2018-08-07] MEDS: Famotidine 20 MG TAB PO SCH (13:45)
[2018-08-08] MEDS: SODIUM CHLORIDE 0.9% IVP SCH (00:38)
[2018-08-08] MEDS: ONDANSETRON IVP SCH (00:38)
[2018-08-08] MEDS: Famotidine 20 MG TAB PO SCH (08:51)
[2018-08-08] MEDS: Polyethylene Glycol 3350 17 GM Packet PO SCH (08:52)
[2018-08-08] MEDS: predniSONE 20 MG TAB PO SCH (09:01)
[2018-08-08] MEDS ORDERED: DOXORUBICIN IVPB SCH (12:00)
[2018-08-08] MEDS ORDERED: Famotidine/PF 20 mg/2ml Vial SLOW IVP SCH (12:00)
[2018-08-08] MEDS ORDERED: SODIUM CHLORIDE 0.9% IVPB SCH (12:00)
[2018-08-08] MEDS ORDERED: VINCRISTINE SULFATE IVPB SCH (12:00)
[2018-08-09] MEDS: ONDANSETRON IVP SCH (01:51)
[2018-08-09] MEDS: SODIUM CHLORIDE 0.9% IVP SCH (01:51)
[2018-08-09] MEDS: predniSONE 20 MG TAB PO SCH (08:37)
[2018-08-09] MEDS: Sulfameth/Trimethoprim DS 800-160mg TAB PO SCH (08:37)
[2018-08-09] MEDS: Polyethylene Glycol 3350 17 GM Packet PO SCH (08:37)
[2018-08-09] MEDS ORDERED: Pegfilgrastim Onpro 6 MG/0.6 ML SQ SCH (12:00)
[2018-08-09] MEDS ORDERED: ONDANSETRON IVP SCH (12:00)
[2018-08-09] MEDS ORDERED: CYCLOPHOSPHAMIDE IVPB SCH (12:00)
[2018-08-09] MEDS ORDERED: SODIUM CHLORIDE 0.9% IVP SCH (12:00)
[2018-08-09] MEDS ORDERED: SODIUM CHLORIDE 0.9% IVPB SCH (12:00)
[2018-08-09] MEDS ORDERED: Famotidine/PF 20 mg/2ml Vial SLOW IVP SCH (12:00)
[2018-08-10] MEDS ORDERED: SODIUM CHLORIDE 0.9% IVPB SCH (05:00)
[2018-08-10] MEDS ORDERED: CYCLOPHOSPHAMIDE IVPB SCH (05:00)
[2018-08-10 08:18] VITALS: BP 131/77; TEMP 97.5
[2018-08-10] MEDS: Polyethylene Glycol 3350 17 GM Packet PO SCH (08:19)
[2018-08-10] MEDS: predniSONE 20 MG TAB PO SCH (08:20)
[2018-08-10] MEDS: Famotidine 20 MG TAB PO SCH (09:17)
[2018-08-10] MEDS ORDERED: Famotidine 20 MG TAB PO SCH (09:30)
[2018-08-10] MEDS ORDERED: Pegfilgrastim Onpro 6 MG/0.6 ML SQ SCH (12:00)
[2018-08-10 13:18] LABS: #Lymphocytes 0.8 thou/uL (1.20-3.40); #Monocytes 0.2 thou/uL (0.11-0.59); #Neutrophils 3.5 thou/uL (1.40-6.50); %Basophils 0.2 % (0.0-1.0); %Eosinophils 0.4 % (0.0-10.0); %Lymphocytes 17.1 % (21.0-51.0); %Monocytes 3.7 % (0.0-10.0); %Neutrophils 78.6 % (42.0-75.0); Hemoglobin 11.1 g/dL (14.0-18.0); Mean Corpuscular HGB CONC 33.5 g/dL (32.0-36.0); Mean Corpuscular Hemoglobin 31.1 pg (27.0-31.0); Mean Corpuscular Volume 92.7 fL (78.0-98.0); Platelet Count 190 thou/uL (130-400); RBC Distribution Width 14.3 % (11.5-14.5); Red Blood Cell (RBC) Count 3.57 mill/uL (4.70-6.10); White Blood Cell (WBC) Count 4.5 thou/uL (4.8-10.8)
[2018-08-10 13:25] LABS: ALT (SGPT) 26 U/L (8-55); AST (SGOT) 13 U/L (5-34); Albumin 3.7 g/dL (3.5-5.0); Alkaline Phosphatase 60 U/L (40-150); Anion Gap 9 mmol/L (10-20); BUN (Urea Nitrogen) 17 mg/dL (8.4-25.7); Bilirubin, Total 0.9 mg/dL (0.2-1.2); Calc. Creatinine Clearance 146 mL/min (70-130); Calcium 9.1 mg/dL (7.8-10.44); Carbon Dioxide 28 mmol/L (22-29); Chloride 103 mmol/L (98-107); Estimated GFR-MDRD Greater than 90; Globulin 1.9 g/dL (2.4-3.5); Glucose 80 mg/dL (70-105); Potassium 3.6 mmol/L (3.5-5.1); Protein, Total 5.6 g/dL (6.0-8.3); Sodium 136 mmol/L (136-145)
--- NOTE | 2018-08-10 18:19 | DIS ---
DATE OF ADMISSION: 08/05/2018 DATE OF DISCHARGE: 08/10/2018 DIAGNOSIS AT ADMISSION: Diffuse large B-cell lymphoma. DIAGNOSIS AT DISCHARGE: Diffuse large B-cell lymphoma. HOSPITAL COURSE: A 52-year-old male with diffuse large B-cell lymphoma, had admitted for cycle 5 of inpatient chemotherapy consisting of EPOCH-R. The patient tolerated well with no issues. He received Onpro at discharge. The patient has no complaints or issues and stable for discharge home. LABORATORY DATA: On August 05, 2018, white blood cells 5.8, hemoglobin 12.7, platelets 324. Sodium 140, potassium 3.9, chloride 104, carbon dioxide 28, BUN 19, creatinine 0.86, uric acid 6.4, LDH 205, AST 32, ALT 37, alkaline phosphatase 84, total bilirubin 0.5, calcium 10.2, glucose 97. HOME MEDICATIONS: The patient to continue his home medications. ACTIVITY: Activity as tolerated. DISCHARGE INSTRUCTIONS: The patient will follow up in clinic next week with repeat blood work. Job ID: [id number]
== END 2018-08-10 10:10 | disposition home or self-care (01) | DRG 847 ==
LOC: ONC/OP 12:30 → ONC 12:31
PROVIDERS: ADMIT Internal Medicine Hematology & Oncology; ATTEND Internal Medicine Hematology & Oncology
DX: Z51.11 Encounter for antineoplastic chemotherapy (principal); C83.39 Diffuse large B-cell lymphoma, extranodal and solid organ sites; Z88.4 Allergy status to anesthetic agent; Z88.0 Allergy status to penicillin
CPT/HCPCS: 80053; 83615; 84550; 85025; 96377; J1100; J1200; J1642; J2405; J2505; J7050; J9070; J9181; J9310; J9312; J9370; Q2050; S0028

== ENCOUNTER 2018-09-02 09:02 | Inpatient (IN) | payer OTHER ==
[2018-09-02] MEDS ORDERED: predniSONE 20 MG TAB PO SCH (14:15)
[2018-09-02] MEDS ORDERED: Acetaminophen 325 MG TAB PO SCH (14:15)
[2018-09-02] MEDS ORDERED: SODIUM CHLORIDE 0.9% IVPB SCH (14:30)
[2018-09-02] MEDS ORDERED: ADMIXTURE FEE IVPB SCH (14:30)
[2018-09-02] MEDS ORDERED: RITUXIMAB IVPB SCH (14:30)
[2018-09-02] MEDS ORDERED: SODIUM CHLORIDE IVPB SCH (14:30)
[2018-09-02] MEDS ORDERED: DIPHENHYDRAMINE IVPB SCH (14:30)
[2018-09-02 14:41] VITALS: BMI 29.2
[2018-09-02] MEDS: Famotidine/PF 20 mg/2ml Vial SLOW IVP SCH (15:04)
[2018-09-02] MEDS: Sulfameth/Trimethoprim DS 800-160mg TAB PO SCH (15:08)
[2018-09-02 15:22] LABS: #Eosinphils 0.1 thou/uL (0.0-0.7); #Lymphocytes 0.9 thou/uL (1.20-3.40); #Monocytes 0.7 thou/uL (0.11-0.59); #Neutrophils 3.7 thou/uL (1.40-6.50); %Basophils 0.8 % (0.0-1.0); %Lymphocytes 15.9 % (21.0-51.0); %Monocytes 12.8 % (0.0-10.0); %Neutrophils 68.5 % (42.0-75.0); Hemoglobin 12.2 g/dL (14.0-18.0); Mean Corpuscular HGB CONC 33.6 g/dL (32.0-36.0); Mean Corpuscular Hemoglobin 30.8 pg (27.0-31.0); Mean Corpuscular Volume 91.7 fL (78.0-98.0); Mean Platelet Volume 7.9 fL (7.4-10.4); Platelet Count 317 thou/uL (130-400); RBC Distribution Width 14.8 % (11.5-14.5); Red Blood Cell (RBC) Count 3.96 mill/uL (4.70-6.10); White Blood Cell (WBC) Count 5.4 thou/uL (4.8-10.8)
[2018-09-02 15:45] LABS: ALT (SGPT) 44 U/L (8-55); AST (SGOT) 32 U/L (5-34); Albumin 4.4 g/dL (3.5-5.0); Alkaline Phosphatase 82 U/L (40-150); Anion Gap 10 mmol/L (10-20); BUN (Urea Nitrogen) 20 mg/dL (8.4-25.7); Bilirubin, Total 0.5 mg/dL (0.2-1.2); Calc. Creatinine Clearance 121 mL/min (70-130); Calcium 9.8 mg/dL (7.8-10.44); Carbon Dioxide 30 mmol/L (22-29); Chloride 103 mmol/L (98-107); Estimated GFR-MDRD 87; Glucose 99 mg/dL (70-105); Potassium 4.2 mmol/L (3.5-5.1); Protein, Total 6.4 g/dL (6.0-8.3); Sodium 139 mmol/L (136-145)
[2018-09-02] MEDS: SODIUM CHLORIDE 0.9% IVPB SCH ×2 (19:31→21:16)
[2018-09-02] MEDS: ONDANSETRON HCL IVPB SCH (19:31)
[2018-09-02] MEDS: VINCRISTINE SULFATE IVPB SCH (21:16)
[2018-09-02] MEDS: DOXORUBICIN IVPB SCH (21:16)
--- NOTE | 2018-09-02 23:46 | HP ---
REASON FOR ADMISSION: Cycle 6 of inpatient chemotherapy for diffuse large B-cell lymphoma. His primary oncologist is Mehul Aiken MD. HISTORY OF PRESENT ILLNESS: Mr. Sky is a pleasant 52-year-old gentleman with diffuse large B-cell lymphoma. He is being admitted today for cycle 6 of inpatient chemotherapy consisting of DA-EPOCH-R. He tolerated his first five cycles with minimal side effects. He had a PET scan after cycle 3, which showed a complete response. This is his last cycle. He has had no myelosuppression. His appetite has been good and his weight has been stable. He denies any complaints at this time. PAST MEDICAL HISTORY: 1. Diffuse large B-cell lymphoma. 2. Colon polyps. 3. Nephrolithiasis. 4. Diverticulitis. PAST SURGICAL HISTORY: 1. Colonoscopy with polypectomy. 2. Strabismus surgery. 3. Varicella repair. 4. Pyloromyotomy. 5. MediPort placement. ALLERGIES: TO ANESTHESIA AND PENICILLIN. HOME MEDICATIONS: 1. Melatonin. 2. Vitamin D. FAMILY HISTORY: Father had colon and prostate cancer. Grandfather had prostate cancer. Paternal grandmother had lymphoma. SOCIAL HISTORY: . No children. Lives with his spouse. No alcohol, tobacco, or illicit drug use. REVIEW OF SYSTEMS: CONSTITUTIONAL: No fever, chills, or night sweats. EYES: No blurred or double vision. ENT: No pain, hoarseness, sore throat, dysphagia. CV: No chest pain, palpitations, syncope. RESPIRATORY: No shortness of breath, dyspnea on exertion, or orthopnea. GI: No nausea, vomiting, diarrhea, constipation, or abdominal pain. : No dysuria, hematuria. MUSCULOSKELETAL: No joint or back pain. SKIN: No rash or pruritus. HEMATOLOGICAL: No bleeding, bruising, clotting. NEUROLOGICAL: No weakness, headache, numbness, tingling, or seizure activity. PSYCH: No anxiety or depression. PHYSICAL EXAMINATION: VITAL SIGNS: Temperature is 97.9, pulse is 64, respiratory rate 18, blood pressure is 127/81. He is 95% on room air. GENERAL: Well-developed, well-nourished male, in no acute distress. HEENT: Normocephalic and atraumatic. Pupils are equal and reactive to light. He has alopecia. NECK: Supple. CV: Regular rate and rhythm. LUNGS: Clear. ABDOMEN: Soft and nontender. Bowel sounds are positive. EXTREMITIES: No clubbing, cyanosis, or edema. SKIN: No rash. HEMATOLOGICAL: No petechiae or purpura. NEUROLOGICAL: Nonfocal. PSYCH: The patient is alert, oriented, appropriate. PERTINENT LABS AND X-RAYS: Current WBCs are 5.4, hemoglobin 12.2, hematocrit 36.3, platelet count 317,000. He has gotten 68% neutrophils, 15% lymphocytes, 12% monocytes. Sodium is 139, potassium 4.2, chloride 103, CO2 is 30, BUN is 20, creatinine 0.91, uric acid is 6, calcium 9.8, bilirubin is 0.5, AST 32, ALT is 44, alkaline phosphatase is 82, LDH is 202. Serum total protein 6.4, albumin 4.4, globulin 2. ASSESSMENT: Multifocal extranodal diffuse large B-cell lymphoma with bone involvement, in complete remission after 5 cycles of chemotherapy. RECOMMENDATIONS: The patient will proceed with cycle 6 of EPOCH-R. He will receive Neulasta support. We will continue stool softener and p.r.n. nausea medication. This is a 5-day regimen. He can be discharged at the end of the regimen. He will tolerate it well. Dr. Aiken will follow and see the patient later today. Job ID: [id number]
[2018-09-03] MEDS: predniSONE 20 MG TAB PO SCH (09:33)
[2018-09-03] MEDS: Polyethylene Glycol 3350 17 GM Packet PO SCH (09:35)
[2018-09-03] MEDS: Famotidine/PF 20 mg/2ml Vial SLOW IVP SCH (09:36)
[2018-09-03] MEDS: SODIUM CHLORIDE 0.9% IVPB SCH ×2 (21:02→22:48)
[2018-09-03] MEDS: ONDANSETRON HCL IVPB SCH (21:02)
[2018-09-03] MEDS: DOXORUBICIN IVPB SCH (22:48)
[2018-09-03] MEDS: VINCRISTINE SULFATE IVPB SCH (22:48)
[2018-09-04] MEDS: Famotidine/PF 20 mg/2ml Vial SLOW IVP SCH (09:16)
[2018-09-04] MEDS: predniSONE 20 MG TAB PO SCH (09:16)
[2018-09-04] MEDS: Polyethylene Glycol 3350 17 GM Packet PO SCH (09:16)
[2018-09-04] MEDS: Sulfameth/Trimethoprim DS 800-160mg TAB PO SCH (09:17)
[2018-09-04] MEDS: SODIUM CHLORIDE 0.9% IVPB SCH ×2 (21:30→23:29)
[2018-09-04] MEDS: ONDANSETRON HCL IVPB SCH (21:30)
[2018-09-04] MEDS: VINCRISTINE SULFATE IVPB SCH (23:29)
[2018-09-04] MEDS: DOXORUBICIN IVPB SCH (23:29)
[2018-09-05] MEDS: predniSONE 20 MG TAB PO SCH (08:15)
[2018-09-05] MEDS: Polyethylene Glycol 3350 17 GM Packet PO SCH (08:16)
[2018-09-05] MEDS: Famotidine/PF 20 mg/2ml Vial SLOW IVP SCH (08:18)
[2018-09-05] MEDS: ONDANSETRON HCL IVPB SCH (22:32)
[2018-09-05] MEDS: SODIUM CHLORIDE 0.9% IVPB SCH (22:32)
[2018-09-06] MEDS: SODIUM CHLORIDE 0.9% IVPB SCH ×2 (00:17→23:30)
[2018-09-06] MEDS: VINCRISTINE SULFATE IVPB SCH (00:17)
[2018-09-06] MEDS: DOXORUBICIN IVPB SCH (00:17)
[2018-09-06] MEDS ORDERED: Pegfilgrastim Onpro 6 MG/0.6 ML SQ SCH (08:00)
[2018-09-06] MEDS ORDERED: CYCLOPHOSPHAMIDE IVPB SCH (08:00)
[2018-09-06] MEDS ORDERED: SODIUM CHLORIDE 0.9% IVPB SCH (08:00)
[2018-09-06] MEDS: predniSONE 20 MG TAB PO SCH (08:29)
[2018-09-06] MEDS: Polyethylene Glycol 3350 17 GM Packet PO SCH (08:30)
[2018-09-06] MEDS: Sulfameth/Trimethoprim DS 800-160mg TAB PO SCH (08:31)
[2018-09-06] MEDS: Famotidine/PF 20 mg/2ml Vial SLOW IVP SCH (08:36)
[2018-09-06] MEDS: ONDANSETRON HCL IVPB SCH (23:30)
[2018-09-07 01:38] LABS: #Lymphocytes 0.4 thou/uL (1.20-3.40); #Monocytes 0.2 thou/uL (0.11-0.59); #Neutrophils 3.4 thou/uL (1.40-6.50); %Eosinophils 0.3 % (0.0-10.0); %Lymphocytes 9.6 % (21.0-51.0); %Monocytes 4.7 % (0.0-10.0); %Neutrophils 85.4 % (42.0-75.0); Mean Corpuscular Hemoglobin 30.5 pg (27.0-31.0); Mean Corpuscular Volume 89.9 fL (78.0-98.0); Mean Platelet Volume 7.5 fL (7.4-10.4); Platelet Count 202 thou/uL (130-400); RBC Distribution Width 14.1 % (11.5-14.5); Red Blood Cell (RBC) Count 3.59 mill/uL (4.70-6.10)
[2018-09-07 01:59] LABS: ALT (SGPT) 26 U/L (8-55); AST (SGOT) 12 U/L (5-34); Alkaline Phosphatase 62 U/L (40-150); Anion Gap 11 mmol/L (10-20); BUN (Urea Nitrogen) 24 mg/dL (8.4-25.7); Bilirubin, Total 0.8 mg/dL (0.2-1.2); Calc. Creatinine Clearance 160 mL/min (70-130); Calcium 9.1 mg/dL (7.8-10.44); Carbon Dioxide 28 mmol/L (22-29); Chloride 103 mmol/L (98-107); Estimated GFR-MDRD Greater than 90; Globulin 1.9 g/dL (2.4-3.5); Glucose 105 mg/dL (70-105); Potassium 3.9 mmol/L (3.5-5.1); Protein, Total 5.9 g/dL (6.0-8.3); Sodium 138 mmol/L (136-145)
[2018-09-07 07:47] VITALS: BP 129/75; TEMP 98.4
[2018-09-07] MEDS ORDERED: Pegfilgrastim Onpro 6 MG/0.6 ML SQ SCH (08:00)
[2018-09-07] MEDS: Polyethylene Glycol 3350 17 GM Packet PO SCH (09:51)
--- NOTE | 2018-09-07 10:45 | DIS ---
DATE OF ADMISSION: 09/02/2018 DATE OF DISCHARGE: 09/07/2018 ADMISSION DIAGNOSIS: Diffuse large B-cell lymphoma, for inpatient chemotherapy. DISCHARGE DIAGNOSIS: Diffuse large B-cell lymphoma, for inpatient chemotherapy. HOSPITAL COURSE: The patient is a 52-year-old man, who was admitted for the sixth and final cycle of dose adjusted EPOCH-R. He has tolerated all cycles extremely well with no complications or side effects. He tolerated this cycle extremely well without side-effects. Onpro kit was placed on the day of discharge. CBC and basic metabolics were normal on the day of discharge. DISCHARGE ACTIVITY: As tolerated. DISCHARGE DIET: Regular as tolerated. DISCHARGE MEDICATIONS: Same as admission. DISCHARGE FOLLOW UP: CBC in the office on . DISCHARGE PROGNOSIS: Good. Job ID: [id number] [facility]
== END 2018-09-07 11:20 | disposition home or self-care (01) | DRG 847 ==
LOC: ONC 13:30
PROVIDERS: ADMIT Internal Medicine Hematology & Oncology; ATTEND Internal Medicine Hematology & Oncology
DX: Z51.11 Encounter for antineoplastic chemotherapy (principal); C79.51 Secondary malignant neoplasm of bone; C83.39 Diffuse large B-cell lymphoma, extranodal and solid organ sites; Z88.0 Allergy status to penicillin; Z88.4 Allergy status to anesthetic agent; Z79.899 Other long term (current) drug therapy
CPT/HCPCS: 80053; 83615; 84550; 85025; 96377; J1200; J1642; J2405; J2505; J7050; J9070; J9181; J9310; J9312; J9370; Q2050; S0028

== ENCOUNTER 2018-12-10 12:09 | Outpatient (CLI) | payer OTHER ==
--- NOTE | 2018-12-10 14:28 | PET ---
Nuclear medicine FDG PET/CT: (Positron emission tomography and computed tomography) DATE: 12/10/2018 HISTORY: 53-year-old male with large B-cell lymphoma of extra heidi site C83.39. Follow-up to treatment. COMPARISON: 05/28/2018 From Alexis Nelson TECHNIQUE: IV injection of F-18 fluorodeoxyglucose (FDG) dose: 11.9 mCi. PET scan and attenuation correction CT performed from skull base to proximal thighs. FINDINGS: SUV (standard uptake values) numbers given are maximum SUVs. QCLR used. There is no avid FDG suspicious lesion in the neck, chest, abdomen, pelvis, or skeleton. The previous ly demonstrated diffusely increased bone uptake secondary to bone marrow stimulation therapy, has resolved. The previously demonstrated callus around the posterior lateral aspect of the right seventh rib has dramatically decreased in size. The mild focal expansile mixed osteolytic and sclerotic lesion at the lateral aspect of the right eighth rib, has become more sclerotic consistent with heali ng lesion. There are several tiny left renal calculi on the order of 2 and 3 mm in size. IMPRESSION: 1) Deauville lymphoma score 1. 2) Evolution of healing osseous lesions involving lateral aspects of right seventh and eighth ribs.
== END 2018-12-10 12:10 | disposition home or self-care (01) ==
LOC: PET 12:09
PROVIDERS: ATTEND Internal Medicine Hematology & Oncology
DX: C83.39 Diffuse large B-cell lymphoma, extranodal and solid organ sites (principal); M89.9 Disorder of bone, unspecified
CPT/HCPCS: 78815; A9552

== ENCOUNTER 2019-05-30 07:25 | Outpatient (CLI) | payer OTHER ==
--- NOTE | 2019-05-30 14:19 | PET ---
EXAM: PET/CT HISTORY: Diffuse large B-cell lymphoma with extranodal and solid organ site TECHNIQUE: PET scanning with CT attenuation correction was performed from the base of the brain to the proximal thighs following the intravenous administration of 13.6. millicuries [id number]. COMPARISON: Prior PET/CT dated December 10, 2018 FINDINGS: Biodistribution:The biodistribution for the exam appears acceptable. Head and neck: There is appropriate background activity within the brain. There are foci of increased metabolic activity involving the floor the mouth, palatine tonsils and vocal cords which is likely related to some physiologic uptake. No suspicious hypermetabolic lymph node or mass is identified. Thorax: No hypermetabolic pulmonary lesion, pleural effusion or lymphadenopathy is present. Abdomen and pelvis: There is expected background activity within the GI and systems. No hypermetab olic mass, lymphadenopathy or ascites is present. There is stable bilateral nephrolithiasis. No hydronephrosis is demonstrated. There is scattered colo rudy diverticulosis without evidence of active diverticulitis. Osseous structures and skin: No hypermetabolic skin or osseous lesion is identified. The small sclero tic lesions involving the lateral margin of the right seventh and eighth ribs are stable. There is no associated hypermetabolic activity with these lesions. IMPRESSION: 1. Deauville lymphoma score of 1. 2. Continued progressive healing of the osseous lesions involving the lateral right seventh and eight h ribs. 3. Bilateral nephrolithiasis. 4. Colonic diverticulosis.
== END 2019-05-30 07:26 | disposition home or self-care (01) ==
LOC: PET 07:25
PROVIDERS: ATTEND Internal Medicine Hematology & Oncology
DX: C83.39 Diffuse large B-cell lymphoma, extranodal and solid organ sites (principal); M89.9 Disorder of bone, unspecified; N20.0 Calculus of kidney; K57.30 Diverticulosis of large intestine without perforation or abscess without bleeding
CPT/HCPCS: 78815; A9552

== ENCOUNTER 2020-03-12 07:20 | Outpatient (CLI) | payer OTHER ==
--- NOTE | 2020-03-12 09:54 | PET ---
EXAM: PET/CT HISTORY: Diffuse large B-cell lymphoma. Exam requested for restaging. Last chemotherapy was in August 2018 TECHNIQUE: PET scanning with CT attenuation correction was performed from the base of the brain to the proximal thighs following the intravenous administration of 12 millicuries [id number]. COMPARISON: 05/30/2019 FINDINGS: No heidi hypermetabolism is seen in the neck, chest, axillary, abdomen, pelvis or inguinal regions No hypermetabolic pulmonary nodules, liver, adrenal or skeletal lesions are seen. There is physiologic activity in the GI and tracts and the visualized portions of the brain. The CT scan used for attenuation correction demonstrates no evidence of pleural effusions or ascites. Nonobstructing bilateral renal calculi, colonic diverticulosis and prostatic enlargement are again seen. IMPRESSION: No evidence of viable lymphoma (Deauville score 1).
== END 2020-03-12 07:21 | disposition home or self-care (01) ==
LOC: PET 07:20
PROVIDERS: ATTEND Internal Medicine Hematology & Oncology
DX: C83.30 Diffuse large B-cell lymphoma, unspecified site (principal)
CPT/HCPCS: 78815; A9552

== ENCOUNTER 2023-05-10 10:15 | Outpatient (CLI) | payer OTHER | END 2023-05-10 10:16 | disposition home or self-care (01) | LOC: PET 10:15 | PROVIDERS: ATTEND Internal Medicine Hematology & Oncology | DX: C83.39 Diffuse large B-cell lymphoma, extranodal and solid organ sites (principal) | CPT/HCPCS: 36415; 78815; 80053; 82248; 83615; 84100; 84550; A9552 ==

== ENCOUNTER 2024-06-06 13:35 | Outpatient (CLI) | payer OTHER | END 2024-06-06 13:36 | disposition home or self-care (01) | LOC: BICRAD 13:35 | PROVIDERS: ATTEND Physician Assistant | DX: R14.0 Abdominal distension (gaseous) (principal); R11.2 Nausea with vomiting, unspecified; N20.0 Calculus of kidney | CPT/HCPCS: 74018 ==